=== PATIENT | female | born 1980 | race Caucasian/White ===

== ENCOUNTER → 2020-04-14 | Outpatient (CLI) | payer BC | END | disposition home or self-care (01) | LOC: US 04-08 14:00 | PROVIDERS: ATTEND Nurse Practitioner Family | DX: N88.8 Other specified noninflammatory disorders of cervix uteri (principal); N92.6 Irregular menstruation, unspecified; E28.2 Polycystic ovarian syndrome ==

== ENCOUNTER → 2020-08-06 | Outpatient (CLI) | payer BC | END | disposition home or self-care (01) | LOC: MRI 00:15 | PROVIDERS: ATTEND Nurse Practitioner Family | DX: E22.1 Hyperprolactinemia (principal) ==